=== PATIENT | female | born 1980 ===

== ENCOUNTER → 2018-12-31 | Emergency (ER) | payer OTHER ==
[~2018-12-31] VITALS: Ht 165.1 cm; Wt 72.6 kg
[~2018-12-31] MED LIST: ACYCLOVIR400 MG PO; ALPRAZOLAM0.25 MG PO; NEURIN SL; VISTARIL50 MG PO
== END | disposition home or self-care (01) ==
LOC: ER 23:24
DX: R00.2 Palpitations (principal)